=== PATIENT | male | born 1985 | race Two or more races ===

== ENCOUNTER 2024-05-02 19:36 | Emergency (ER) | payer OTHER ==
[~2024-05-02] VITALS: Ht 182.9 cm; Wt 135.6 kg
[2024-05-02 20:30] VITALS: BP 129/77; PULSE 82; RESP 15; O2SAT 95
[2024-05-03] MEDS ORDERED: CIPR750T3 PO (00:07)
[2024-05-03] MEDS ORDERED: ACET500T58 PO (00:07)
--- NOTE | 2024-05-03 00:07 | ED.PDOC ---
History of Present Illness(SKN HPI Comments 38 YEAR OLD MALE PRESENTS TO ER WITH COMPLAINTS OF PUNCTURE WOUND TO LEFT FOOT X 4 HOURS. PATIENT WITH PMH OF DIABETES STATES THAT HE SUSTAINED PUNCTURE WOUND TO LEFT FOOT 4 HOURS PRIOR TO ARRIVAL TO S/P AN APPROXIMATELY 2-3 CM YEE NAIL GOING THROUGH THE SOLE OF HIS SHOE AFTER ACCIDENTALLY STEPPING ON IT. REPORTS HE IMMEDIATELY REMOVED THE YEE NAIL WITH HIS FINGERS, DENYING ANY FOREIGN BODY SENSATION TO LEFT FOOT. PATIENT PRESENTS TO ER, AMBULATORY ON ARRIVAL WITH STEADY GAIT, IN NO DISTRESS AND IS UNSURE WHEN HIS LAST TETANUS SHOT WAS. DENIES NUMBNESS/TINGLING, BLEEDING/DRAINAGE OR ANY FURTHER SYMPTOMS/COMPLAINTS Chief Complaint: Lower Extremity Time Seen by MD: 20:55 Primary Care Provider: [facility] History of Present Illness: Nurses Notes, Medications, Allergies Allergies: Coded Allergies: NO KNOWN ALLERGIES (Unverified , 05/02/24) Home Meds Active Scripts Ciprofloxacin Hcl (Ciprofloxacin Hcl) 750 Mg Tab, 750 MG PO BID for 7 Days, #14 TAB 0 Refills Prov:LAURIE HALL 05/03/24 Acetaminophen (Acetaminophen) 500 Mg Tab, 500 MG PO Q4HPRN, #30 TAB 0 Refills Prov:LAURIE HALL 05/03/24 Information Source: Patient Mode of Arrival: Ambulatory Tetanus: Unknown Past Medical History PAST MEDICAL HISTORY: DM Surgical History: Denies all surgeries Family History Family History: Unknown Social History Smoker: Non-Smoker Alcohol: Denies ETOH Use Drugs: Denies Drug Use Lives In: Home Constitutional: denies: chills, diaphoresis, fatigue, fever, malaise, sweats, weakness, others EENTM: denies: blurred vision, double vision, ear bleeding, ear discharge, ear drainage, ear pain, ear ringing, eye pain, eye redness, hearing loss, mouth pain, mouth swelling, nasal discharge, nose bleeding, nose congestion, nose pain, photophobia, tearing, throat pain, throat swelling, voice changes, others Respiratory: denies: cough, hemoptysis, orthopnea, SOB at rest, shortness of breath, SOB with excertion, stridor, wheezing, others Cardiovascular: denies: chest pain, dizzy spells, diaphoresis, Dyspnea on exertion, edema, irregular heart beat, left arm pain, lightheadedness, pal pitations, PND, syncope, others Gastrointestinal: denies: abdomen distended, abdominal pain, blood streaked bowels, constipated, diarrhea, dysphagia, difficulty swallowing, hematemesis, melena, nausea, poor appetite, poor fluid intake, rectal bleeding, rectal pain, vomiting, others Genitourinary: denies: burning, dysuria, flank pain, frequency, hematuria, incontinence, penile discharge, penile sore, pain, testicle pain, testicle swelling, urgency, others Neurological: denies: dizziness, fainting, headache, left sided numbness, left sided weakness, numbness, paresthesia, pre-existing deficit, right sided numbness, right sided weakness, seizure, speech problems, tingling, tremors, weakness, others Musculoskeletal: denies: back pain, gout, joint pain, joint swelling, muscle pain, muscle stiffness, neck pain, others Integumetry: reports: others ( STATED IN HPI) Allergic/Immunocompromised: denies: Difficulty Healing, Frequent Infections, Hives, Itching, others Hematologic/Lymphatic: denies: anemia, blood clots, easy bleeding, easy bruising, swollen glands, others Endocrine: denies: excessive hunger, excessive sweating, excessive thirst, excessive urination, flushing, intolerance to cold, intolerance to heat, unexplained weight gain, unexplained weight loss, others Psychiatric: denies: anxiety, bipolar disorder, depression, hopeless, panic disorder, schizophrenia, sleepless, suicidal, others Physical Exam General Appearance: No Apparent Distress, Obese HEENT: PERRL/EOMI Neck: Full Range of Motion, Non-Tender, Normal Respiratory: Chest Non-Tender, Lungs Clear, No Accessory Muscle Use, No Respiratory Distress, Normal Breath Sounds Cardiovascular: No Murmur, No Gallop, Regular Rate/Rhythm Breast Exam: Deferred Gastrointestinal: NOT DONE Genitalia: Deferred Pelvic: Deferred Rectal: Deferred Extremities: Normal capillary refill, Normal range of motion Musculoskeletal : Extremity Location: Foot (PUNCTURE WOUND < .5CM IN SIZE CENTRALIZED TO PLANTAR SURFACE OF LEFT FOOT NOTED WITH MINIMAL ERYTHEMA SURROUNDING PUNCTURE WOUND NOTED. NO BLEEDING/DRAINAGE/FOREIGN BODY APPREICATED. NO BONY TENDERNESS NOTED. PULSES INTACT. GAIT INTACT WITHOUT ABNORMALITY) Neurologic: Alert, geriatric case manager II-XII nml as Tested, No Motor Deficits, Normal Affect, Normal Mood, No Sensory Deficits Cerebellar Function: Normal Reflexes: Normal Skin: Dry, Warm Lymphatic: No Adenopathy Was a procedure done? Was a procedure done?: No Sedation Sedation?: No Differential Diagnosis (INTG) Differential Diagnosis: Abrasion, Fracture Differential Diagnosis: Abscess Differential Diagnosis: Open Fracture, Retained Foreign Body X-Ray, Labs, Meds, VS Vital Signs Date Time Temp Pulse Resp B/P (MAP) Pulse Ox O2 Delivery O2 Flow Rate FiO2 05/02/24 20:30 98.4 82 15 129/77 (94) 95 Lab Test 05/02/24 20:34 Range/Units POC Glucose 96 70-106 mg/dl POC GLUCOSE REVIEWED - 96 ROCEPHIN 1 G IM ORDERED TDAP 0.5 ML IM ORDERED PATIENT NEUROVASCULARLY INTACT AND IN NO DISTRESS PRIOR TO DISCHARGE WOUND CARE/CLEANING DISCUSSED AND ADVISED ADVISED TO FOLLOW UP IN TWO DAYS FOR WOUND CHECK ADVISED TO FOLLOW UP WITH PCP IN 1-2 DAYS PATIENT VERBALIZED UNDERSTANDING AND AGREEABLE WITH CURRENT PLAN OF CARE ADVISED TO RETURN TO ER IMMEDIATELY IF SYMPTOMS WORSEN Time of 1ST Reevaluation: 23:40 Reevaluation 1ST: N/A Patient Education/Counseling: Diagnosis, Treatment, Prognosis, Need For Follow Up Family Education/Counseling: No Family Present Departure 1 Departure Time of Disposition: 00:00 Impression: Primary Impression: Cellulitis of left foot Disposition: 01 HOME / SELF CARE / HOMELESS Condition: Stable e-Prescriptions Ciprofloxacin Hcl (Ciprofloxacin Hcl) 750 Mg Tab 750 MG PO BID for 7 Days, #14 TAB 0 Refills Prov: LAURIE HALL 05/03/24 Acetaminophen (Acetaminophen) 500 Mg Tab 500 MG PO Q4HPRN, #30 TAB 0 Refills Prov: LAURIE HALL 05/03/24 Discharged With: Self Critical Care Note Critical Care Time?: No Stability Stability form required: No Heart Score Heart Score: Heart Score Response (Comments) Value History N/A 0 EKG N/A 0 Age N/A 0 Risk Factors N/A 0 Troponin N/A 0 Total 0 LAURIE HALL May 03, 2024 00:07
[2024-05-03] MEDS: ACETAMINOPHEN 325 MG TAB PO ONE (00:09)
[2024-05-03] MEDS: cefTRIAXone SOD 1,000 MG VL IM ONE (00:19)
[2024-05-03] MEDS: TETANUS-DIPTH-ACEL PERTUSSIS 0.5ML SYR Tdap IM ONE (00:19)
== END 2024-05-03 00:24 | disposition home or self-care (01) ==
LOC: ER 19:36
DX: L03.116 Cellulitis of left lower limb (principal); E11.9 Type 2 diabetes mellitus without complications
CPT/HCPCS: 82947; 90471; 90715; 96372; 99284; J0696; 82962